=== PATIENT | male | born 1955 | race African-American/Black ===

== ENCOUNTER 2016-03-02 15:59 | Emergency (ER) | payer MEDICAID, OTHER ==
[~2016-03-02] VITALS: Ht 195.6 cm; Wt 107.0 kg
[~2016-03-02 15:59] MED LIST: AUG875 PO; BACTDS PO; IBUP-1542 PO; TAMS-14 PO; ULT50 PO
[2016-03-02 16:27] VITALS: Ht 195.6 cm; Wt 107.0 kg
--- NOTE | 2016-03-02 17:20 | RADRPT ---
PROCEDURE: XR Chest. CLINICAL INDICATION: Cough. TECHNIQUE: Single frontal chest x-ray. COMPARISON: Chest radiograph 08/06/2014. FINDINGS: The cardiomediastinal silhouette is unremarkable. Minimal aortic atherosclerotic vascular calcificat ions are identified. No pneumothorax, pleural effusion or consolidation is seen. No acute osseous abnormality is noted. IMPRESSION: 1. No acute cardiopulmonary abnormality. No significant interval change. 2. Minimal aortic atherosclerosis. RPTAT: HH .David Mcneil MD, Date Time Electronically viewed and signed by .David Mcneil MD, on 03/02/2016 17:19 .N/
[2016-03-02] MEDS ORDERED: D-ME473S18 PO (17:32)
[2016-03-02] MEDS ORDERED: AZIT250T94 PO (17:32)
[2016-03-02] MEDS ORDERED: IBUP-1542 PO (17:32)
--- NOTE | 2016-03-02 17:37 | ERD ---
ER Documentation Chief Complaint Date/Time DATE: 03/02/16 TIME: 17:36 Chief Complaint cough and chest pain (only when breaths)x 4 days HPI This 52-year-old male presents with cough for last 4 days. Which is of productive sputum. He also complains of some pleuritic type anterior chest pain. Denies any sustained anterior chest pain. Denies any abdominal pain or vomiting. ROS All systems reviewed and are negative except as per history of present illness. Medications Home Meds Active Scripts Dextromethorphan Hb-Promethazine Hcl (Promethazine DM Syrup) 473 Ml Syrup, 5 ML PO Q6H Y for COUGH, #4 OZ Prov:LYN JAMES MD 03/02/16 Ibuprofen* (Motrin*) 600 Mg Tab, 600 MG PO Q6, #18 TAB Prov:LYN JAMES MD 03/02/16 Azithromycin* (Zithromax*) 250 Mg Tablet, 250 MG PO .ZPACK DIRECTED, #6 TAB TAKE 500 MG (2 TABS) THE FIRST DAY THEN 250 MG (1 TAB) DAYS 2-5 Prov:LYN JAMES MD 03/02/16 Sulfamethoxazole-Trimethoprim* (Bactrim* DS) 800-160 Mg Tab, 1 TAB PO BID for 10 Days, TAB Prov:RAQUEL PRICE PA-C 10/06/14 Ibuprofen* (Ibuprofen*) 600 Mg Tablet, 600 MG PO Q6 for PAIN, #30 TAB Prov:BIA HEWITT PA-C 10/04/14 Amoxicillin-Clavulanate K* (Augmentin*) 875 Mg Tab, 875 MG PO BID for 7 Days, TAB Prov:BIA HEWITT PA-C 10/04/14 Tamsulosin Hcl* (Flomax*) 0.4 Mg Cap.er.24h, 0.4 MG PO BID, #14 CAP Prov:IRON GRISSOM MD 08/20/14 Tramadol HCl (Tramadol HCl) 50 Mg Tab, 50 MG PO Q6 Y for PAIN, #20 TAB Prov:IRON GRISSOM MD 08/20/14 Allergies Allergies: Coded Allergies: No Known Allergy (Unverified , 08/20/14) PMhx/Soc History of Surgery: Yes (SKIN GRAFT TO LT KNEE) Anesthesia Reaction: No Hx Neurological Disorder: No Hx Respiratory Disorders: No Hx Cardiac Disorders: No Hx Psychiatric Problems: No Hx Miscellaneous Medical Probl: Yes (KIDNEY STONES, PNEUMONIA) Hx Alcohol Use: No Hx Substance Use: No Hx Tobacco Use: Yes (E-CIG Q1HR 6MG NICOTINE ) Smoking Status: Current every day smoker Physical Exam Vitals Vital Signs Date Time Temp Pulse Resp B/P Pulse Ox O2 Delivery O2 Flow Rate FiO2 03/02/16 16:27 97.6 94 18 125/78 98 Physical Exam Const: [] Alert, [id number] per Head: Atraumatic Eyes: Normal Conjunctiva ENT: Normal External Ears, Nose and Mouth. Neck: Full range of motion..~ No meningismus. Resp: Clear to auscultation bilaterally Cardio: Regular rate and rhythm, no murmurs Abd: Soft, non tender, non distended. Normal bowel sounds Skin: No petechiae or rashes Back: No midline or flank tenderness Ext: No cyanosis, or edema Neur: Awake and alert Psych: Normal Mood and Affect Procedures/MDM EKG: Rate/Rhythm: [Normal Sinus Rhythm] rate equals 89 QRS, ST, T-waves: [No changes consistent w/ acute ischemia] Impression: [No evidence of ischemia or arrhythmia]. Impression-normal EKG Chest X-ray 1V Interpreted by me: Soft Tissue: No acute abnormalities Bones: No acute abnormalities Mediastinum/Cardiac Silhouette/Lungs: [No acute abnormalities]. Impression of normal 1 view chest x-ray Patient presents with URI symptoms of pleuritic anterior chest pain. Some signs or symptoms currently to suggest acute coronary syndrome, PE, pneumonia, hypoxemia, respiratory distress. He will be treated with Zithromax, promethazine and ibuprofen. The patient was stable with no new complaints during the ER course. Clinically, there is no current evidence to suggest meningitis, sepsis, acute abdomen, pneumonia, acute coronary syndrome, pulmonary embolism, or any other emergent condition appearing to require further evaluation or hospitalization. The patient should certainly return for any new or worsening symptoms per the aftercare instructions. They should otherwise follow-up with her primary care doctor for reevaluation this week. Departure Diagnosis: Primary Impression: Chest pain Chest pain type: unspecified Qualified Code: R07.9 - Chest pain, unspecified type Additional Impression: URI, acute Condition: Stable Patient Instructions: Acute Bronchitis, Chest Pain, Uncertain Cause Additional Instructions: X-ray and EKG normal today. Recheck for new or worsening symptoms or primary care doctor. LYN AJMES MD Mar 02, 2016 17:37
== END 2016-03-02 17:46 | disposition home or self-care (01) ==
LOC: FTE 15:59
DX: R07.9 Chest pain, unspecified (principal); J06.9 Acute upper respiratory infection, unspecified; F17.210 Nicotine dependence, cigarettes, uncomplicated
CPT/HCPCS: 71010; 93005; Z7502

== ENCOUNTER 2016-04-20 07:51 | Emergency (ER) | payer MEDICAID ==
[~2016-04-20] VITALS: Wt 103.0 kg
[~2016-04-20 07:51] MED LIST changes: +AZIT250T94 PO; +D-ME473S18 PO; +TRAM50TA2 PO; -ULT50 PO
--- NOTE | 2016-04-20 08:20 | ERD ---
ER Documentation Chief Complaint Date/Time DATE: 04/20/16 TIME: 08:18 Chief Complaint right small toe pain from blunt inury 2 wks ago. no distress HPI 60-year-old male comes in with right fifth toe trauma from 2 weeks ago. Patient states that he hit it against a piece of furniture, it is not been getting better, and it has become slightly red and swollen over the last few days. Pain is aching, moderate localized to the right fifth toe. He has tried Epsom salts at home and does not report any improvement from this. Patient states that he usually is bending at work, and has applied pressure and the pain has worsened from this. He denies any history of diabetes, fevers or chills or drainage. ROS All systems reviewed and are negative except as per history of present illness. Medications Home Meds Active Scripts Sulfamethoxazole-Trimethoprim* (Bactrim* DS) 800-160 Mg Tab, 1 TAB PO BID for 7 Days, TAB Prov:RAQUEL PRICE PA-C 04/20/16 Cephalexin* (Keflex*) 500 Mg Capsule, 500 MG PO QID for 7 Days, CAP Prov:RAQUEL PRICE PA-C 04/20/16 Naproxen* (Naprosyn*) 500 Mg Tablet, 500 MG PO BID Y for PAIN AND/OR INFLAMMATION, #30 TAB Prov:RAQUEL PRICE PA-C 04/20/16 Dextromethorphan Hb-Promethazine Hcl (Promethazine DM Syrup) 473 Ml Syrup, 5 ML PO Q6H Y for COUGH, #4 OZ Prov:LYN JAEMS MD 03/02/16 Ibuprofen* (Motrin*) 600 Mg Tab, 600 MG PO Q6, #18 TAB Prov:LYN JAMES MD 03/02/16 Azithromycin* (Zithromax*) 250 Mg Tablet, 250 MG PO .ZPACK DIRECTED, #6 TAB TAKE 500 MG (2 TABS) THE FIRST DAY THEN 250 MG (1 TAB) DAYS 2-5 Prov:LYN JAMES MD 03/02/16 Sulfamethoxazole-Trimethoprim* (Bactrim* DS) 800-160 Mg Tab, 1 TAB PO BID for 10 Days, TAB Prov:RAQUEL PRICE PA-C 10/06/14 Ibuprofen* (Ibuprofen*) 600 Mg Tablet, 600 MG PO Q6 for PAIN, #30 TAB Prov:KASHBIA PERKINS 10/04/14 Amoxicillin-Clavulanate K* (Augmentin*) 875 Mg Tab, 875 MG PO BID for 7 Days, TAB Prov:KASHBIA GREGORIO 10/04/14 Tamsulosin Hcl* (Flomax*) 0.4 Mg Cap.er.24h, 0.4 MG PO BID, #14 CAP Prov:IRON GRISSOM MD 08/20/14 Tramadol HCl (Tramadol HCl) 50 Mg Tab, 50 MG PO Q6 Y for PAIN, #20 TAB Prov:IRON GRISSOM MD 08/20/14 Allergies Allergies: Coded Allergies: No Known Allergy (Unverified , 04/20/16) PMhx/Soc History of Surgery: Yes (SKIN GRAFT TO LT KNEE) Anesthesia Reaction: No Hx Neurological Disorder: No Hx Respiratory Disorders: No Hx Cardiac Disorders: No Hx Psychiatric Problems: No Hx Miscellaneous Medical Probl: Yes (KIDNEY STONES, PNEUMONIA) Hx Alcohol Use: No Hx Substance Use: No Hx Tobacco Use: Yes (E-CIG Q1HR 6MG NICOTINE ) Smoking Status: Never smoker Physical Exam Vitals Vital Signs Date Time Temp Pulse Resp B/P Pulse Ox O2 Delivery O2 Flow Rate FiO2 04/20/16 07:54 98.1 81 20 145/84 99 Physical Exam General: Well-developed, well-nourished. The patient appears in no acute distress. HEENT: Head is normocephalic, atraumatic. No scleral icterus. Neck: Supple. Nontender. Lungs: Clear to auscultation. Normal air movement. Heart: Regular rate and rhythm. S1 and S2 are normal. No murmurs, gallops, or rubs. Abdomen: Soft, nontender, nondistended. Bowel sounds are normoactive. Extremities: Right fifth toe nail has onychomycosis, nail bed is intact, there is erythema at the dorsal aspect of the toe, tenderness to palpation. He is able to flex and extend the toe. No openings. Capillary refill less than 2 seconds. Besides onychomycosis, further right foot examination is unremarkable. Neurologic: Alert and oriented 3. No focal deficits. Skin: Normal turgor. No rash or lesions. Results 24 hrs PROCEDURE: XR right fifth toe. CLINICAL INDICATION: Right fifth toe pain after recent trauma TECHNIQUE: 3 views of the right fifth toe COMPARISON: No prior studies are available for comparison. FINDINGS: There is normal mineralization and alignment of the bones of the right fifth toe. There is fusion of the mid and distal phalanx, a common variant. There is no evidence of acute fracture or dislocation. There is a suggested healed fracture of the proximal fifth phalanx. There is soft tissue swelling. IMPRESSION: 1. No evidence of acute fracture or dislocation. RPTAT: AA .Eduardo Linda MD, Date Time Electronically viewed and signed by .Eduardo Linda MD, on 2016 09:04 .B/ Procedures/MDM ED course: X-rays of the right fifth toe were ordered. MDM: 52-year-old male comes with a traumatic right fifth toe injury from 2 weeks ago, no evidence of a fracture. There is erythema and swelling just below the nailbed, early signs of paronychia. He has had this ongoing for about a week now, I doubt gout. No signs of osteomyelitis, tendon rupture, ulcer. He was advised to do soaks, rest, and take antibiotics. He is to do a wound check in 2 days. Departure Diagnosis: Primary Impression: Injury of toe Condition: RAQUEL Mckenzie PA-C Apr 20, 2016 08:20
--- NOTE | 2016-04-20 09:05 | RADRPT ---
PROCEDURE: XR right fifth toe. CLINICAL INDICATION: Right fifth toe pain after recent trauma TECHNIQUE: 3 views of the right fifth toe COMPARISON: No prior studies are available for comparison. FINDINGS: There is normal mineralization and alignment of the bones of the right fifth toe. There is fusion o f the mid and distal phalanx, a common variant. There is no evidence of acute fracture or dislocati on. There is a suggested healed fracture of the proximal fifth phalanx. There is soft tissue swell ing. IMPRESSION: 1. No evidence of acute fracture or dislocation. RPTAT: AA .Eduardo Linda MD, MD Date Time Electronically viewed and signed by .Eduardo Linda MD, on 04/20/2016 09:04 .B/
[2016-04-20] MEDS ORDERED: CEPH-443 PO (09:22)
[2016-04-20] MEDS ORDERED: NAPR-260 PO (09:22)
[2016-04-20] MEDS ORDERED: BACTDS PO (09:22)
== END 2016-04-20 09:31 | disposition home or self-care (01) ==
LOC: FTE 07:51
DX: S99.921A Unspecified injury of right foot, initial encounter (principal); F17.210 Nicotine dependence, cigarettes, uncomplicated; W22.03XA Walked into furniture, initial encounter; Y92.9 Unspecified place or not applicable
CPT/HCPCS: 73660; Z7502

== ENCOUNTER 2016-04-25 07:05 | Emergency (ER) | payer MEDICAID ==
[~2016-04-25] VITALS: Wt 104.0 kg
[~2016-04-25 07:05] MED LIST changes: +CEPH-443 PO; +NAPR-260 PO
[2016-04-25] MEDS ORDERED: ONDA4TAB8 PO (07:49)
--- NOTE | 2016-04-25 08:03 | ERD ---
ER Documentation Chief Complaint Date/Time DATE: 04/25/16 TIME: 07:54 Chief Complaint nausea no vomiting after starting abx for toe infection. HPI This is a 60-year-old male who presents to the emergency department today for follow-up of a wound that he had evaluated 5 days ago. Patient states that he ended up putting a needle in his toe and some pus came out. States he is taking his antibiotics that he was prescribed but it is making him feel nauseated. States he has been taking Naprosyn for pain and doing foot soaks.. Denies any fevers or chills. ROS All systems reviewed and are negative except as per history of present illness. Medications Home Meds Active Scripts Ondansetron Hcl* (Zofran*) 4 Mg Tablet, 4 MG PO Q6H for NAUSEA AND/OR VOMITING, #30 TAB Prov:JACQUE BAILEY PA-C 04/25/16 Sulfamethoxazole-Trimethoprim* (Bactrim* DS) 800-160 Mg Tab, 1 TAB PO BID for 7 Days, TAB Prov:RAQUEL PRICE PA-C 04/20/16 Cephalexin* (Keflex*) 500 Mg Capsule, 500 MG PO QID for 7 Days, CAP Prov:RAQUEL PRICE PA-C 04/20/16 Naproxen* (Naprosyn*) 500 Mg Tablet, 500 MG PO BID Y for PAIN AND/OR INFLAMMATION, #30 TAB Prov:RAQUEL PRICE PA-C 04/20/16 Dextromethorphan Hb-Promethazine Hcl (Promethazine DM Syrup) 473 Ml Syrup, 5 ML PO Q6H Y for COUGH, #4 OZ Prov:LYN JAMES MD 03/02/16 Ibuprofen* (Motrin*) 600 Mg Tab, 600 MG PO Q6, #18 TAB Prov:LYN JAMES MD 03/02/16 Azithromycin* (Zithromax*) 250 Mg Tablet, 250 MG PO .RABIA DIRECTED, #6 TAB TAKE 500 MG (2 TABS) THE FIRST DAY THEN 250 MG (1 TAB) DAYS 2-5 Prov:LYN JAMES MD 03/02/16 Sulfamethoxazole-Trimethoprim* (Bactrim* DS) 800-160 Mg Tab, 1 TAB PO BID for 10 Days, TAB Prov:RAQUEL PRICE PA-C 10/06/14 Ibuprofen* (Ibuprofen*) 600 Mg Tablet, 600 MG PO Q6 for PAIN, #30 TAB Prov:BIA HEWITT PA-C 10/04/14 Amoxicillin-Clavulanate K* (Augmentin*) 875 Mg Tab, 875 MG PO BID for 7 Days, TAB Prov:BIA HEWITT PA-C 10/04/14 Tamsulosin Hcl* (Flomax*) 0.4 Mg Cap.er.24h, 0.4 MG PO BID, #14 CAP Prov:IRON GRISSOM MD 08/20/14 Tramadol HCl (Tramadol HCl) 50 Mg Tab, 50 MG PO Q6 Y for PAIN, #20 TAB Prov:IRON GRISSOM MD 08/20/14 Allergies Allergies: Coded Allergies: No Known Allergy (Unverified , 04/20/16) PMhx/Soc History of Surgery: Yes (SKIN GRAFT TO LT KNEE) Anesthesia Reaction: No Hx Neurological Disorder: No Hx Respiratory Disorders: No Hx Cardiac Disorders: No Hx Psychiatric Problems: No Hx Miscellaneous Medical Probl: Yes (KIDNEY STONES, PNEUMONIA) Hx Alcohol Use: No Hx Substance Use: No Hx Tobacco Use: Yes (E-CIG Q1HR 6MG NICOTINE ) Smoking Status: Current every day smoker Physical Exam Vitals Vital Signs Date Time Temp Pulse Resp B/P Pulse Ox O2 Delivery O2 Flow Rate FiO2 04/25/16 07:08 98.7 90 20 133/80 99 Physical Exam Const: No acute distress Head: Atraumatic Eyes: Normal Conjunctiva ENT: Normal External Ears, Nose and Mouth. Neck: Full range of motion..~ No meningismus. Resp: Clear to auscultation bilaterally Cardio: Regular rate and rhythm, no murmurs Skin: No petechiae or rashes. No erythema or warmth. Ext: Right fifth toenail with onychomycosis. Nailbed intact. Evidence of hematoma subungual and around nail bed. Nontender to palpation. Pulses 2+. Neur: Awake and alert Psych: Normal Mood and Affect Procedures/MDM This a 60-year-old male who presents to the emergency department today for wound check evaluation of a wound that he was seen here for on the right . At that time patient had reported injuring his toe 2 weeks prior to that and having pain and some redness. An x-ray was done 5 days ago here in the emergency department that showed what appears to be an old healing fracture but no acute fracture dislocation. Patient was given a prescription for Bactrim and Keflex. Patient did indicate that it was making him feel nauseated however he only has 2 days left to take the medications. At this point I do not feel that I need to switch the medication given that the patient has only had nausea and not a type I hypersensitivity reaction. I have explained this to the patient. Patient feels comfortable continuing to take the medication. There is no erythema or warmth on physical exam. There was evidence of a subungual hematoma underneath onychomycosis as well as along the nailbed. I did use an 18 -gauge needle after prepping the wound with Betadine to create a small puncture so that the wound may drain. Patient tolerated the procedure well and there were no complications. I think that the patient's pain is threefold at this point, from previous possible localized infection, onychomycosis, old healing fracture. I have explained this to the patient. All of patient's toenails are onychomycotic and I have recommended that he see a ent surgeon at this time. Patient was given the name of Dr. Newby who works in the amputation prevention center. 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 Patient did indicate that he works for [employer] doing [employer] and wears work boots on a daily basis. I did give the patient a work note for a couple of days. At this time of low suspicion for sepsis or deep space infection. Patient is afebrile and otherwise well-appearing. He was been instructed to continue taking his medications as prescribed. I did give the patient a prescription for Zofran for any nausea or vomiting. At this time the patient is stable for discharge and outpatient management. Patient should follow up with their PCP in the next 1-2 days. They may return to the emergency department sooner for any persistent or worsening of symptoms. Patient understood and agreed with the plan. Departure Diagnosis: Primary Impression: Visit for wound check Condition: Fair Patient Instructions: Wound Care Referrals: Asif Hoffman [facility] Additional Instructions: Call your primary care doctor TOMORROW for an appointment during the next 1-2 days.See the doctor sooner or return here if your condition worsens before your appointment time. Continue taking antibiotics as prescribed Take Naprosyn or Tylenol or Motrin for pain Take zofran for nausea or vomiting Keep wound clean Make appt for ent surgeon JACQUE BAILEY PA-C Apr 25, 2016 08:03
== END 2016-04-25 08:09 | disposition home or self-care (01) ==
LOC: FTE 07:05
DX: R11.0 Nausea (principal); F17.210 Nicotine dependence, cigarettes, uncomplicated; T36 Poisoning by, adverse effect of and underdosing of systemic antibiotics; T36.8X5A Adverse effect of other systemic antibiotics, initial encounter; Z48.01 Encounter for change or removal of surgical wound dressing
CPT/HCPCS: 99283

== ENCOUNTER 2018-01-04 07:00 | Emergency (ER) | END 2018-01-04 08:55 | disposition home or self-care (01) ==